=== PATIENT | male | born 1980 | race Caucasian/White ===

== ENCOUNTER 2016-08-05 23:25 | Emergency (ER) | payer MEDICARE, MEDICAID ==
[~2016-08-05] VITALS: Ht 175.3 cm; Wt 89.5 kg
[~2016-08-05 23:25] MED LIST: CYCL5TAB PO; METH-313 PO; TRAM50TA2 PO
[2016-08-05 23:32] VITALS: BP 145/96; PULSE 94; RESP 18; O2SAT 99
--- NOTE | 2016-08-06 00:42 | ED.REPORT ---
HPI-General Illness Date of Service Aug 06, 2016 ED Provider: Doc,Ed MD Gil Barnes is a pleasant 35-year-old gentleman history of anxiety, presents after attempting this fall his nightly medication of olanzapine and fluoxetine states that it feels as though they are stuck in his throat, feels the sensation points roughly at the area of his apical manubrium he took the pills roughly 10:15, 10 minutes later he began to have a sensation of burning and stinging in his throat, 5 minutes afterwards he said he vomited after having sensation of gagging. He was unable to see any of the pills in his vomitus, there was no blood. He has never had this before, he does not have a history of acid reflux, he is not experiencing heartburn, he states he is able to drink fluids currently. He denies any lightheadedness, dizziness, chest pain, shortness of breath, headache, rashes, dysuria, nausea vomiting diarrhea, paresthesias or weakness. He conveys that the stinging and burning still present nearly 3 hours later, and points to the region of the just superior to the manubrium. Nursing Notes Stated Complaint: THROAT BURNING Chief Complaint: General Complaint Allergies: Coded Allergies: No Known Allergies (Verified Allergy, Unknown, 08/05/16) Scheduled Methocarbamol (Robaxin-750) 750 Mg Tablet 1,500 MG PO QID Scheduled PRN Cyclobenzaprine (Cyclobenzaprine) 5 Mg Tablet 5 MG PO TID PRN PRN Spasm Tramadol (Tramadol) 50 Mg Tablet 100 MG PO Q6H PRN PRN For Pain General Time Seen by MD: 00:42 Chief Complaint Other (burning in thoat) Hx Obtained From: Patient, Spouse Sudden in Onset?: Yes Similar Sx Previous: No Past Medical History Past Medical History Anxiety Past Surgical History Dental surgery Smoking History Current Every Day Smoker Social History Alcohol Use: Denies alcohol use Drug Use: Denies drug use Other Social History: Local resident Occupation lives with girlfriend, no work or school at this time 01/03/2016 Ambulatory Status Independent Review of Systems Complete sys rev & neg: except as marked. Physical Exam General: Laying in bed, no apparent distress. HEENT: Normocephalic, atraumatic, EOMI grossly, mucous membranes moist, oropharynx is pink, no lesions, throat is nontender, neck is supple without lymphadenopathy, trachea is midline, thyroid is without any nodules and is symmetric. Cardiovascular: Regular rate and rhythm, no clicks murmurs rubs, peripheral pulses 2/4 equal bilaterally Pulmonary: Clear to auscultation bilaterally, no W/R/R. Abdominal: Soft to palpation, bowel sounds present 4, no hepatosplenomegaly. Negative rebound. Extremities: No edema appreciated. No tenderness, asymmetry. Neuro: Neurologically grossly intact, strength is equal bilaterally upper and lower extremities. MSK:Able to move extremities on their own volition, strength 5 out of 5 equal bilaterally to upper and lower extremities. Vital Signs Vital Signs Date Time Temp Pulse Resp B/P Pulse Ox O2 Delivery O2 Flow Rate FiO2 08/06/16 01:49 36.4 92 17 138/78 96 Room Air 08/05/16 23:32 37.1 94 18 145/96 99 Room Air Initial VS: Reviewed Re-Eval/Medical Decision Med Decision/Clinical Course Evaluation did not support achalasia, or ongoing difficulty swallowing. He gives me additional history that he has been swallowing his pills exclusively with saliva over the last week. He was able to swallow water as well as applesauce while in the department. Discussion for soft tissue x-ray was had with the patient and their shared decision making that there is ongoing resolution of his symptoms and he does not feel that is necessary at this time. He was given instructions to follow-up with his primary care doctor, and told he was welcome return to the emergency department if there is any worsening discomfort in his throat, or if he experiences any chest pain or shortness of breath, coughing up blood. Patient states understanding and agreement with the interpretation and plan. Counseled Regarding: Diagnosis, Need for follow-up, When/why to return to ED Discharge & Departure Primary Impression: Foreign body sensation in throat Disposition: Home Discharge Condition All VS Reviewed: Yes Condition: Stable Additional Instructions: Thank you for entrusting us with your care today. Based on your history and physical exam we do not perceive that additional diagnostics are necessary at this time and we anticipate that the burning in her throat will dissipate over time. Recommend you take your pills with water every time to avoid agitation to your esophagus, and risk them sticking in her throat. If you develop a cough, or begins spitting up blood, please return to the emergency department immediately. Please follow-up with your primary care doctor regarding any residual symptoms. Referrals: Lance Dyer DO (PCP) Attending Statement As attending of record for this patient, I conducted an independent history and physical exam, and I concur with the documentation per the resident note above, and as amended. copies to: Lance Dyer Todd P DO Aug 06, 2016 00:42 Mickey Bustamante DO Aug 06, 2016 01:02 Pete Garcia MD Aug 06, 2016 07:19
[2016-08-06 01:49] VITALS: BP 138/78; PULSE 92; RESP 17; O2SAT 96
== END 2016-08-06 01:50 | disposition home or self-care (01) ==
LOC: SED 23:25
DX: R07.0 Pain in throat (principal); R11.10 Vomiting, unspecified; F17.200 Nicotine dependence, unspecified, uncomplicated